=== PATIENT | female | born 1970 | race Caucasian/White ===

== ENCOUNTER 2021-07-12 11:10 | Emergency (ER) | payer SELFPAY ==
[2021-07-12 11:45] LABS: #Eosinphils 0.2 thou/uL (0.0-0.7); #Lymphocytes 1.8 thou/uL (1.20-3.40); #Monocytes 0.3 thou/uL (0.11-0.59); #Neutrophils 2.9 thou/uL (1.40-6.50); %Basophils 0.8 % (0.0-1.0); %Lymphocytes 34.5 % (21.0-51.0); %Monocytes 6.3 % (0.0-10.0); %Neutrophils 55.5 % (42.0-75.0); Hemoglobin 12.6 g/dL (12.0-16.0); Mean Corpuscular HGB CONC 33.6 g/dL (32.0-36.0); Mean Platelet Volume 8.1 fL (7.4-10.4); Platelet Count 239 thou/uL (130-400); RBC Distribution Width 11.4 % (11.5-14.5); Red Blood Cell (RBC) Count 3.95 mill/uL (4.20-5.40); White Blood Cell (WBC) Count 5.2 thou/uL (4.8-10.8)
[2021-07-12 11:54] LABS: Bilirubin Negative (Negative); Blood, Urine Negative (Negative); Clarity Clear (Clear); Glucose, Urine (Dipstick) Normal (Negative); Ketone, Urine Negative (Negative); Leukocyte Negative Leu/uL (Negative); Nitrite Negative (Negative); Protein, Urine (Dipstick) Negative (Neg-Trace); Specific Gravity, Urine 1.005 (1.002-1.036); Urobilinogen Normal mg/dL (Less than 2); pH, Urine 6.5 (5.0-9.0)
[2021-07-12 12:11] LABS: ALT (SGPT) 28 U/L (8-55); AST (SGOT) 19 U/L (5-34); Albumin 4.1 g/dL (3.5-5.0); Alkaline Phosphatase 58 U/L (40-110); Anion Gap 13 mmol/L (10-20); BUN (Urea Nitrogen) 7 mg/dL (7.0-18.7); Bilirubin, Total 0.4 mg/dL (0.2-1.2); Calc. Creatinine Clearance 0 mL/min (70-130); Carbon Dioxide 25 mmol/L (22-29); Chloride 108 mmol/L (98-107); Globulin 2.4 g/dL (2.4-3.5); Glucose 86 mg/dL (70-105); Lipase 11 U/L (8-78); Potassium 3.4 mmol/L (3.5-5.1); Protein, Total 6.5 g/dL (6.0-8.3); Sodium 143 mmol/L (136-145)
== END 2021-07-12 14:40 | disposition home or self-care (01) ==
LOC: ERS 11:10
DX: K80.70 Calculus of gallbladder and bile duct without cholecystitis without obstruction (principal); F17.210 Nicotine dependence, cigarettes, uncomplicated
CPT/HCPCS: 36415; 76705; 80053; 81003; 83690; 84484; 85025; 93005; 94760

== ENCOUNTER 2021-11-30 06:22 | Emergency (ER) | payer SELFPAY ==
[2021-11-30] MEDS ORDERED: Lorazepam 2 MG/ML VIAL ONE (07:41)
[2021-11-30] MEDS ORDERED: Fentanyl 100 MCG/2 ML VIAL ONE (07:41)
[2021-11-30] MEDS ORDERED: Metoclopramide HCl 10 MG/2 ML VIAL ONE (07:42)
[2021-11-30] MEDS ORDERED: Ondansetron PF 4 MG/2 ML Vial ONE (07:42)
[2021-11-30] MEDS ORDERED: Ketorolac Tromethamine 30 MG/ML VIAL ONE (07:42)
[2021-11-30] MEDS ORDERED: Dexamethasone 10 MG/ML VIAL ONE (07:42)
== END 2021-11-30 10:14 | disposition home or self-care (01) ==
LOC: ERS 06:22
DX: M54.2 Cervicalgia (principal); G89.29 Other chronic pain; G43.909 Migraine, unspecified, not intractable, without status migrainosus; F17.210 Nicotine dependence, cigarettes, uncomplicated; Z20.822 Contact with and (suspected) exposure to COVID-19
CPT/HCPCS: 96365; 96375; J1100; J1885; J2060; J2405; J2765; J3010

== ENCOUNTER 2022-08-10 09:36 | Observation (INO) | payer BC, SELFPAY ==
[2022-08-10] MEDS ORDERED: Iopamidol-370 76% 500 ML 1 ML ONE (09:41)
[2022-08-10 10:40] LABS: #Eosinphils 0.2 thou/uL (0.0-0.7); #Lymphocytes 1.9 thou/uL (1.20-3.40); #Monocytes 0.3 thou/uL (0.11-0.59); #Neutrophils 3.3 thou/uL (1.40-6.50); %Basophils 0.3 % (0.0-1.0); %Eosinophils 2.8 % (0.0-10.0); %Lymphocytes 33.3 % (21.0-51.0); %Monocytes 5.9 % (0.0-10.0); %Neutrophils 57.7 % (42.0-75.0); Hemoglobin 13.1 g/dL (12.0-16.0); Mean Corpuscular HGB CONC 33.9 g/dL (32.0-36.0); Mean Corpuscular Hemoglobin 32.5 pg (27.0-31.0); Mean Corpuscular Volume 95.8 fl (78.0-98.0); Mean Platelet Volume 8.4 fL (7.4-10.4); Platelet Count 213 10x3/uL (130-400); RBC Distribution Width 11.2 % (11.5-14.5); Red Blood Cell (RBC) Count 4.04 mill/uL (4.20-5.40); White Blood Cell (WBC) Count 5.7 10x3/uL (4.8-10.8)
[2022-08-10 11:03] LABS: ALT (SGPT) 15 U/L (8-55); AST (SGOT) 25 U/L (5-34); Albumin 4.4 g/dL (3.5-5.0); Alkaline Phosphatase 57 U/L (40-110); Anion Gap 11 mmol/L (10-20); BUN (Urea Nitrogen) 15 mg/dL (7.0-18.7); Bilirubin, Total 0.6 mg/dL (0.2-1.2); Calc. Creatinine Clearance 0 mL/min (70-130); Calcium 9.2 mg/dL (7.8-10.44); Carbon Dioxide 22 mmol/L (22-29); Chloride 108 mmol/L (98-107); Estimated GFR 102; Globulin 2.9 g/dL (2.4-3.5); Glucose 82 mg/dL (70-105); Lipase 15 U/L (8-78); Potassium 4.2 mmol/L (3.5-5.1); Protein, Total 7.3 g/dL (6.0-8.3); Sodium 137 mmol/L (136-145)
[2022-08-10 11:43] LABS: BHCG - Serum Negative (NEGATIVE); Pregs Control Background? CLEAR/WHITE (CLR/WHITE); Pregs Control Bar Appear? YES (CONTROL BAR)
[2022-08-10] MEDS ORDERED: Nitroglycerin 0.4 MG TAB (25 Tab Bottle) SL PRN (12:34)
[2022-08-10] MEDS ORDERED: Acetaminophen 325 MG TAB PO PRN (12:34)
[2022-08-10] MEDS ORDERED: Ondansetron PF 4 MG/2 ML Vial IVP PRN (12:34)
[2022-08-10 14:41] LABS: Phosphorus 2.4 mg/dL (2.3-4.7)
[2022-08-10 14:44] VITALS: BMI 28.8
[2022-08-10] MEDS ORDERED: FLU VACC QS2022-23(6MOS UP)/PF 60 MCG/0.5 ML SYRINGE IM ONE (15:15)
[2022-08-10 16:43] LABS: Bacteria/HPF None Seen HPF (None Seen); Bilirubin Negative (Negative); Blood, Urine Negative (Negative); Clarity Clear (Clear); Glucose, Urine (Dipstick) Normal (Negative); Ketone, Urine Negative (Negative); Leukocyte Negative Leu/uL (Negative); Nitrite Negative (Negative); Protein, Urine (Dipstick) Negative (Neg-Trace); RBC/HPF 0-3 HPF (0-3); Squamous Epithelial 0-3 HPF (0-3); Urobilinogen Normal mg/dL (Less than 2); WBC/HPF 0-3 HPF (0-3)
[2022-08-10 16:45] LABS: Urine Culture Reflex No No
[2022-08-11 05:24] LABS: #Eosinphils 0.2 thou/uL (0.0-0.7); #Lymphocytes 1.8 thou/uL (1.20-3.40); #Monocytes 0.4 thou/uL (0.11-0.59); #Neutrophils 2.7 thou/uL (1.40-6.50); %Eosinophils 3.8 % (0.0-10.0); %Lymphocytes 35.3 % (21.0-51.0); %Monocytes 7.2 % (0.0-10.0); %Neutrophils 53.6 % (42.0-75.0); Hemoglobin 12.8 g/dL (12.0-16.0); Mean Corpuscular HGB CONC 33.6 g/dL (32.0-36.0); Mean Corpuscular Hemoglobin 32.3 pg (27.0-31.0); Mean Corpuscular Volume 96.2 fl (78.0-98.0); Mean Platelet Volume 7.8 fL (7.4-10.4); Platelet Count 207 10x3/uL (130-400); RBC Distribution Width 11.1 % (11.5-14.5); Red Blood Cell (RBC) Count 3.98 mill/uL (4.20-5.40); White Blood Cell (WBC) Count 5.1 10x3/uL (4.8-10.8)
[2022-08-11 05:43] LABS: Anion Gap 12 mmol/L (10-20); BUN (Urea Nitrogen) 13 mg/dL (7.0-18.7); Calc. Creatinine Clearance 99 mL/min (70-130); Calcium 8.8 mg/dL (7.8-10.44); Carbon Dioxide 22 mmol/L (22-29); Chloride 107 mmol/L (98-107); Estimated GFR 102; Glucose 92 mg/dL (70-105); Potassium 3.6 mmol/L (3.5-5.1); Sodium 137 mmol/L (136-145)
[2022-08-11] MEDS ORDERED: Nicotine 21 MG PATCH TD SCH (09:00)
[2022-08-11] MEDS ORDERED: Aspirin Chewable 81 MG TAB PO SCH (09:00)
[2022-08-11 11:51] VITALS: BP 109/56; TEMP 98
[2022-08-11] MEDS ORDERED: Hydrocortisone 1% Cream 30 GM TUBE TOP SCH (13:45)
[2022-08-11] MEDS ORDERED: EPINEPHrine 1 MG/ML AMP ONE (14:02)
[2022-08-11] MEDS ORDERED: Lidocaine 1% (PF) 30 ML VIAL ONE (14:02)
[2022-08-11] MEDS ORDERED: Enoxaparin Sodium 40 MG/0.4 ML SYRINGE SC SCH (21:00)
== END 2022-08-11 18:55 | disposition home or self-care (01) ==
LOC: ERS 09:36 → 2SW 11:59
PROVIDERS: ADMIT Internal Medicine; ATTEND Internal Medicine
PROC: 0JH632Z Insertion of Monitoring Device into Chest Subcutaneous Tissue and Fascia, Percutaneous Approach (ICD-10-PCS; principal; 2022-08-11)
DX: R55 Syncope and collapse (principal); I65.21 Occlusion and stenosis of right carotid artery; F17.210 Nicotine dependence, cigarettes, uncomplicated; R91.8 Other nonspecific abnormal finding of lung field; G89.29 Other chronic pain; M54.2 Cervicalgia; R20.0 Anesthesia of skin; R20.2 Paresthesia of skin; R00.2 Palpitations; R39.9 Unspecified symptoms and signs involving the genitourinary system; I08.1 Rheumatic disorders of both mitral and tricuspid valves; Z88.6 Allergy status to analgesic agent; Z20.822 Contact with and (suspected) exposure to COVID-19
CPT/HCPCS: 33285; 36415; 36416; 70450; 71045; 71275; 80048; 80053; 81001; 82533; 83690; 83735; 83880; 84100; 84443; 84484; 84703; 85025; 85379; 93005; 93306; 93880; 94760; G0378; J0171; J2001; Q9967; U0003; U0005